=== PATIENT | female | born 1965 | race Hispanic/Latino ===

== ENCOUNTER 2022-06-09 19:04 | Emergency (ER) | payer SELFPAY ==
[~2022-06-09] VITALS: Ht 160 cm; Wt 70.8 kg
[2022-06-09] MEDS ORDERED: IBUPROFEN 200 MG TAB PO ONE (19:45)
[2022-06-09 20:18] VITALS: BP 155/92
== END 2022-06-09 20:18 | disposition home or self-care (01) ==
LOC: FSED 19:32
DX: M25.552 Pain in left hip (principal); M25.551 Pain in right hip; M25.562 Pain in left knee; M25.561 Pain in right knee; M25.572 Pain in left ankle and joints of left foot; M25.571 Pain in right ankle and joints of right foot; M54.50 Low back pain, unspecified
CPT/HCPCS: 99282

== ENCOUNTER 2024-09-09 17:53 | Emergency (ER) | payer SELFPAY ==
[~2024-09-09 17:53] MED LIST: AMOX TR-K CLV1 EAC2 PO; ONDANSETRON ODT4 MG PO
== END 2024-09-09 18:40 | disposition short-term general hospital (02) ==
LOC: ER 18:38
DX: M79.602 Pain in left arm (principal)